=== PATIENT | female | born 1980 | race American Indian/Alaskan Native ===

== ENCOUNTER 2017-04-17 03:13 | Inpatient (IN) | payer MEDICAID ==
--- NOTE | 2017-04-17 04:34 | ED PDOC ---
Arrival/HPI - General Chief Complaint: Psychiatric Evaluation Time Seen by Provider: 04/17/17 03:23 Historian: Patient - History of Present Illness Narrative History of Present Illness (Text): 04/17/17 03:54 Paris Christensen is a 36 year old female who presents to the Emergency department complaining of auditory hallucinations. Patient states she has been hearing voices for the past few days with associated depression and suicidal ideation. Patient states she wishes she could be hit by a bus. Patient denies any fever, chills, chest pain, shortness of breath, nausea, vomiting, diarrhea, urinary symptoms, back pain, neck pain, headache, dizziness, or any other complaints. Time/Duration: Other (few days) Symptom Onset: Gradual Symptom Course: Unchanged Activities at Onset: Rest, Light Context: Home Past Medical History - Provider Review Nursing Documentation Reviewed: Yes - Infectious Disease Hx of Infectious Diseases: None - Cardiac Hx Hypertension: Yes - Pulmonary Hx Respiratory Disorders: Yes Other/Comment: Smoker - Psychiatric Hx Hallucinations: Yes Hx Substance Use: Yes - Surgical History Hx Orthopedic Surgery: Yes (finger) Other/Comment: achilles tendon sx - Anesthesia Hx Anesthesia: Yes Hx Anesthesia Reactions: No Hx Malignant Hyperthermia: No Family/Social History - Physician Review Nursing Documentation Reviewed: Yes Family/Social History: No Known Family HX Smoking Status: Former Smoker Hx Alcohol Use: Yes Frequency of alcohol use: Few days per week Hx Substance Use: Yes Substance used: PCP - 2 days ago Allergies/Home Meds Allergies/Adverse Reactions: Allergies No Known Allergies Allergy (Verified 04/17/17 03:26) Home Medications: Home Meds Medication Instructions Recorded Confirmed Unobtainable 04/17/17 04/17/17 Review of Systems - Physician Review All systems were reviewed & negative as marked: Yes - Review of Systems Constitutional: Normal. absent: Fevers Eyes: Normal ENT: Normal Respiratory: Normal. absent: SOB, Cough Cardiovascular: Normal. absent: Chest Pain Gastrointestinal: Normal. absent: Diarrhea, Nausea, Vomiting Genitourinary Female: Normal. absent: Dysuria, Frequency, Hematuria, Urine Output Changes Musculoskeletal: Normal. absent: Back Pain, Neck Pain Skin: Normal. absent: Rash Neurological: Normal. absent: Headache, Dizziness Endocrine: Normal Hemo/Lymphatic: Normal Psychiatric: Depression, Suicidal Ideation, Other (+hallucinations) Physical Exam Vital Signs Reviewed: Yes Vital Signs Temp Pulse Resp BP Pulse Ox 04/17/17 05:00 104 H 19 112/65 100 04/17/17 03:31 98.7 F 119 H 18 134/86 98 Temperature: Afebrile Blood Pressure: Normal Pulse: Regular Respiratory Rate: Normal Appearance: Positive for: Well-Appearing, Non-Toxic, Comfortable Pain Distress: None Mental Status: Positive for: Alert and Oriented X 3 - Systems Exam Head: Present: Atraumatic, Normocephalic Pupils: Present: PERRL Extroacular Muscles: Present: EOMI Conjunctiva: Present: Normal Ears: Present: NORMAL TM Mouth: Present: Moist Mucous Membranes Pharnyx: Present: Normal Neck: Present: Normal Range of Motion Respiratory/Chest: Present: Clear to Auscultation, Good Air Exchange. No: Respiratory Distress, Accessory Muscle Use Cardiovascular: Present: Regular Rate and Rhythm, Normal S1, S2. No: Murmurs Abdomen: Present: Normal Bowel Sounds. No: Tenderness, Distention, Peritoneal Signs Back: Present: Normal Inspection Upper Extremity: Present: Normal Inspection, Normal ROM. No: Cyanosis, Edema Lower Extremity: Present: Normal Inspection, Normal ROM. No: Edema Neurological: Present: GCS=15, CN II-XII Intact, Speech Normal, Motor Func Grossly Intact, Normal Sensory Function Skin: Present: Warm, Dry, Normal Color. No: Rashes Psychiatric: Present: Alert, Oriented x 3, Delusional, Hallucinations Medical Decision Making ED Course and Treatment: 04/17/17 03:54 Impression: 36 year old female complaining of auditory hallucination, depression, and suicidal ideation. Plan: -- EKG -- Chest X-ray -- Labs, alcohol level -- Urinalysis, urine drug screen -- Reassess and disposition Prior Visits: Notes and results from previous visits were reviewed. Progress Notes: Reviewed EKG, NSR at [address]-segment elevations or depressions, no T-wave inversions, normal intervals. 04/17/17 05:42 Reviewed radiology, Chest X-ray shows no active disease. 04/17/17 07:[address] Barney, pending PES evaluation, re-assessment, and final disposition. - Lab Interpretations Lab Results: 04/17/17 04:45 04/17/17 04:45 Lab Results 04/17/17 04:45: Alcohol, Quantitative < 10 04/17/17 04:45: Salicylates < 1 L, Acetaminophen < 10.0 L 04/17/17 04:45: Urine Opiates Screen Negative, Urine Methadone Screen Negative, Ur Barbiturates Screen Negative, Ur Phencyclidine Scrn Positive H, Ur Amphetamines Screen Negative, U Benzodiazepines Scrn Negative, U Oth Cocaine Metabols Negative, U Cannabinoids Screen Negative 04/17/17 04:45: Sodium 141, Potassium 3.5 L, Chloride 102, Carbon Dioxide 28, Anion Gap 15, BUN 10, Creatinine 0.6, Est GFR ( Amer) > 60, Est GFR (Non- Af Amer) > 60, Random Glucose 93, Calcium 8.9, Total Bilirubin 0.6, AST 48 H, ALT 47, Alkaline Phosphatase 78, Total Protein 7.8, Albumin 4.1, Globulin 3.7, Albumin/Globulin Ratio 1.1 04/17/17 04:45: Urine Color Yellow, Urine Appearance Clear, Urine pH 6.0, Ur Specific [place] 1.025, Urine Protein Trace H, Urine Glucose (UA) Negative, Urine Ketones Negative, Urine Blood Negative, Urine Nitrate Negative, Urine Bilirubin Negative, Urine Urobilinogen 1.0 H, Ur Leukocyte Esterase Negative, Urine RBC 0 - 2, Urine WBC 0 - 2, Urine Bacteria Few, Urine HCG, Qual Negative 04/17/17 04:45: WBC 2.8 L*, RBC 4.12, Hgb 12.0, Hct 35.4 L, MCV 85.9, MCH 29.1, MCHC 33.9, RDW 12.8, Plt Count 168, MPV 10.3, Gran % 64.3, Lymph % (Auto) 24.4, [place] % (Auto) 9.5 H, Eos % (Auto) 1.4 L, Baso % (Auto) 0.4, Gran # 1.82, Lymph # 0.7 L, [place] # 0.3, Eos # 0.0, Baso # 0.01 I have reviewed the lab results: Yes - RAD Interpretation Radiology Orders: 04/17/17 03:54 CHEST PORTABLE [RAD] Stat Patient Safety Coordinator: ED Physician - EKG Interpretation Interpreted by ED Physician: Yes Type: 12 lead EKG - Scribe Statement The provider has reviewed the documentation as recorded by the Jeanetteliyah Lo All medical record entries made by the Thomas were at my direction and personally dictated by me. I have reviewed the chart and agree that the record accurately reflects my personal performance of the history, physical exam, medical decision making, and the department course for this patient. I have also personally directed, reviewed, and agree with the discharge instructions and disposition. Disposition/Present on Arrival - Present on Arrival Any Indicators Present on Arrival: No History of DVT/PE: No History of Uncontrolled Diabetes: No Urinary Catheter: No History of Decub. Ulcer: No History Surgical Site Infection Following: None - Disposition Have Diagnosis and Disposition been Completed?: No Diagnosis: Substance abuse, Hallucinations Disposition Time: 07:00 Condition: STABLE
[2017-04-17 04:39] VITALS: BMI 36.8
[2017-04-17 05:20] LABS: ADD MANUAL DIFF? NO
[2017-04-17 05:26] LABS: BASO # 0.01 K/mm3 (0.0-2.0); BASO % 0.4 % (0.0-3.0); EOS % 1.4 % (1.5-5.0); GRAN # 1.82 (1.4-6.5); GRAN % 64.3 % (50.0-68.0); HEMATOCRIT 35.4 % (36.0-48.0); LYMPH # 0.7 (1.2-3.4); LYMPH % 24.4 % (22.0-35.0); MEAN CELL VOLUME 85.9 fL (80.0-105.0); MEAN CORPUSCULAR HEMOGLOBIN 29.1 pg (25.0-35.0); MEAN CORPUSCULAR HGB CONC 33.9 g/dl (31.0-37.0); MEAN PLATELET VOLUME 10.3 fl (7.0-11.0); MONO # 0.3 (0.1-0.6); MONO % 9.5 % (1.0-6.0); PLATELET COUNT 168 10^3/uL (120.0-450.0); RED CELL DISTRIBUTION WIDTH 12.8 % (11.5-14.5)
[2017-04-17 05:33] LABS: WHITE BLOOD COUNT 2.8 10^3/ul (4.5-11.0)
[2017-04-17 05:35] LABS: ALB/GLOB RATIO 1.1 (1.1-1.8); ALKALINE PHOSPHATASE 78 U/L (38-133); ALT/SGPT 47 U/L (7-56); AST/SGOT 48 U/L (15-39); BILIRUBIN,TOTAL 0.6 mg/dL (0.2-1.3); BLOOD UREA NITROGEN 10 mg/dL (7-21); CALCIUM 8.9 mg/dL (8.4-10.5); CARBON DIOXIDE 28 mmol/L (21-33); CHLORIDE 102 mmol/L (95-110); GFR AFRICAN-AMERICAN > 60; GLUCOSE,RANDOM 93 mg/dL (70-110); POTASSIUM 3.5 mmol/L (3.6-5.0); SODIUM 141 mmol/L (132-148); TOTAL PROTEIN 7.8 g/dL (5.8-8.3)
[2017-04-17 05:41] LABS: URINE BILIRUBIN NEGATIVE (NEGATIVE); URINE BLOOD NEGATIVE (NEGATIVE); URINE GLUCOSE (UA) NEGATIVE (NEGATIVE); URINE KETONE NEGATIVE (NEGATIVE); URINE LEUKOCYTE ESTERASE NEGATIVE Leu/uL (NEGATIVE); URINE PROTEIN TRACE mg/dL (<30 mg/dL)
[2017-04-17 05:45] LABS: URINE APPEARANCE CLEAR (CLEAR); URINE COLOR YELLOW (YELLOW)
[2017-04-17 05:49] LABS: URINE RBC 0 - 2 /hpf (0-2); URINE WBC 0 - 2 /hpf (0-6)
[2017-04-17 05:50] LABS: URINE BACTERIA FEW (NEG)
--- NOTE | 2017-04-17 07:00 | RAD ---
HISTORY: medical clearance COMPARISON: No prior. FINDINGS: LUNGS: No active pulmonary disease. PLEURA: No significant pleural effusion identified, no pneumothorax apparent. CARDIOVASCULAR: Normal. OSSEOUS STRUCTURES: No significant abnormalities. VISUALIZED UPPER ABDOMEN: Normal. OTHER FINDINGS: None. IMPRESSION: No active disease.
--- NOTE | 2017-04-17 07:07 | ED PDOC ---
Physical Exam Vital Signs Reviewed: Yes Vital Signs Temp Pulse Resp BP Pulse Ox 04/17/17 09:00 92 H 17 137/79 100 04/17/17 07:00 94 H 16 113/70 100 04/17/17 05:00 104 H 19 112/65 100 04/17/17 03:31 98.7 F 119 H 18 134/86 98 Temperature: Afebrile Blood Pressure: Normal Pulse: Tachycardic Respiratory Rate: Normal Appearance: Positive for: Well-Appearing, Non-Toxic, Comfortable Pain Distress: None Mental Status: Positive for: Alert and Oriented X 3 Medical Decision Making ED Course and Treatment: 04/17/17 07:05 Patient signed out to me by . Pending PES evaluation, reassessment and disposition. Patient is a 36 year old female who presents to the emergency department complaining of auditory hallucinations associated with depressions and suicidal ideation for past few days. 04/17/17 09:58 Evaluated by PES, accepted for admission for psychosis. - Lab Interpretations Lab Results: 04/17/17 04:45 04/17/17 04:45 Lab Results 04/17/17 04:45: Alcohol, Quantitative < 10 04/17/17 04:45: Salicylates < 1 L, Acetaminophen < 10.0 L 04/17/17 04:45: Urine Opiates Screen Negative, Urine Methadone Screen Negative, Ur Barbiturates Screen Negative, Ur Phencyclidine Scrn Positive H, Ur Amphetamines Screen Negative, U Benzodiazepines Scrn Negative, U Oth Cocaine Metabols Negative, U Cannabinoids Screen Negative 04/17/17 04:45: Sodium 141, Potassium 3.5 L, Chloride 102, Carbon Dioxide 28, Anion Gap 15, BUN 10, Creatinine 0.6, Est GFR ( Amer) > 60, Est GFR (Non- Af Amer) > 60, Random Glucose 93, Calcium 8.9, Total Bilirubin 0.6, AST 48 H, ALT 47, Alkaline Phosphatase 78, Total Protein 7.8, Albumin 4.1, Globulin 3.7, Albumin/Globulin Ratio 1.1 04/17/17 04:45: Urine Color Yellow, Urine Appearance Clear, Urine pH 6.0, Ur Specific [place] 1.025, Urine Protein Trace H, Urine Glucose (UA) Negative, Urine Ketones Negative, Urine Blood Negative, Urine Nitrate Negative, Urine Bilirubin Negative, Urine Urobilinogen 1.0 H, Ur Leukocyte Esterase Negative, Urine RBC 0 - 2, Urine WBC 0 - 2, Urine Bacteria Few, Urine HCG, Qual Negative 04/17/17 04:45: WBC 2.8 L*, RBC 4.12, Hgb 12.0, Hct 35.4 L, MCV 85.9, MCH 29.1, MCHC 33.9, RDW 12.8, Plt Count 168, MPV 10.3, Gran % 64.3, Lymph % (Auto) 24.4, [place] % (Auto) 9.5 H, Eos % (Auto) 1.4 L, Baso % (Auto) 0.4, Gran # 1.82, Lymph # 0.7 L, [place] # 0.3, Eos # 0.0, Baso # 0.01 - RAD Interpretation Radiology Orders: 04/17/17 03:54 CHEST PORTABLE [RAD] Stat - Scribe Statement The provider has reviewed the documentation as recorded by the Thomas Earl Provider Attestation: All medical record entries made by the Thomas were at my direction and personally dictated by me. I have reviewed the chart and agree that the record accurately reflects my personal performance of the history, physical exam, medical decision making, and the department course for this patient. I have also personally directed, reviewed, and agree with the discharge instructions and disposition. Disposition/Present on Arrival - Present on Arrival Any Indicators Present on Arrival: No History of DVT/PE: No History of Uncontrolled Diabetes: No Urinary Catheter: No History of Decub. Ulcer: No History Surgical Site Infection Following: None - Disposition Have Diagnosis and Disposition been Completed?: Yes Diagnosis: Hallucinations, Psychosis Disposition Time: 09:59 Patient Plan: Admission Patient Problems: Current Active Problems Problem Status Onset Hallucinations Acute Substance abuse Acute Condition: STABLE
[2017-04-17 11:12] VITALS: O2SAT 98
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
--- NOTE | 2017-04-17 16:25 | CARD ---
APPROVED REPORT EKG Measurement Heart [id number] <Conclusion> Normal sinus rhythm Normal ECG
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
--- NOTE | 2017-04-19 11:52 | CON ---
DATE: 04/19/2017 SUBJECTIVE: I was consulted by psychiatry. I saw her in her room. She is a very sweet 36-year-old female. She presented to the Emergency Room with complaining of auditory hallucinations for about a few days now with depression and some suicidal thoughts. She wished she could be hit by a bus. No o ther symptoms. No chest pain or shortness of breath, no abdominal pain, no nausea, vomiting or diarr hea. She is very pleasant and she is very nice. PAST MEDICAL HISTORY: She tells me she has a history of hypertension. She is a smoker. She has jamir lucinations. She has substance abuse history, orthopedic surgery on her finger and Achilles tendons. FAMILY HISTORY: Hypertension in the family. SOCIAL HISTORY: Former smoker. Alcohol. Substance abuse. She did PCP 2 days ago. That could be t he reason why it stimulated the voices. ALLERGIES: No known drug allergies. MEDICATIONS: She does not remember the medications she takes or has been taking them at all anyway f or the blood pressure. REVIEW OF SYSTEMS: She does have auditory hallucinations telling her to hurt herself. It is better now this morning. No vision changes, no hearing changes, no sore throat, no congestion, no neck pain , no chest pain or palpitations. No shortness of breath or coughing, no back pain. No extremity kamar n. She ambulates well. No swelling at this time. Comfortable. She is depressed, a little suicidal ; better than when she came in. It could be the drugs getting out of her system and no hallucination s this morning. PHYSICAL EXAMINATION: VITAL SIGNS: 98.7 temp, 119 pulse, came down to 104, an 18 respiratory rate, blood pressure 134/86 c josefina down to 112/65 and 100% O2 sat. GENERAL: She is pleasant right now, smiling, well appearing, nontoxic, comfortable, no acute distres s, alert and oriented x 3, asking me when she can go home. HEENT: Extraocular muscles are intact. Pupils equal, reactive to light and accommodation. Throat i s moist. NECK: Supple. HEART: Regular rate. Normal S1, S2. LUNGS: Clear to auscultation bilaterally. ABDOMEN: Soft, nontender, positive bowel sounds. EXTREMITIES: No edema. NEUROLOGIC: Cranial nerves II-XII grossly intact. GCS is 15. Normal motor functions bilaterally. She can smile. She sticks out her tongue midline. She can close her eyes tight. She is alert and o riented x 3 at this time, no delusional hallucinations. She feels back to her old self and would lik e to go home. I told her that is up to the psychiatrist. We will need to monitor her blood pressure and see where she is at. EKG was normal sinus rhythm at 92 beats per minute. Chest x-ray was clear. She had a few other things. LABORATORY DATA: She had a low white count of 2.8; I am going to repeat that tomorrow, hemoglobin 12 , hematocrit 35.4, platelets 168. Chemistry shows a 141 sodium, potassium 3.5, I told her eat a bana na. BUN 10, creatinine 0.6, GFR is greater than 60, sugar is 93, calcium is 8.9, total bili is 0.6, AST is 48, ALT is 47, alk phos is 78, total protein 7.8, albumin is 4.1, globulin 3.7. Urine had tra ce protein, negative for . She was positive for phencyclidine which I believe is part of PC P. She was seen by the psychiatrist. She definitely has substance abuse and CPT with psychosis, a littl e depression, maybe suicidal thoughts rolled in there. She is currently on Ativan, Cogentin, Desyrel, Geodon, and Risperdal at this time. The last blood pr essure was 125/62 which is very good. I am not going to put her on any blood pressure medication rig ht now. We will keep an eye on her. I would like to repeat the labs tomorrow to make sure the white count comes up and the potassium comes up. If they do not, I will do other things. She is here for auditory hallucinations, substance abuse which was PCP, history of hypertension, none now, low potas sium, leukocytosis. We will follow. Joce Li DO cc: [id number] TT: 04/19/2017 11:38:32 Confirmation # [id number] Dictation # [id number]
--- NOTE | 2017-04-19 16:25 | PCM.PYCHPN ---
Psychiatric Progress Note - Psychiatric Progress Note Patient seen today, length of contact: 30 minutes Patient Chief Complaint: "I came here because I was hearing things, and seeing things." Problems Identified/Issues Discussed: Suicide/ homicide prevention, past psychiatric h/o, current psychiatric symptoms , medical problems, risk/benefits and alternatives of medications, medications compliance, coping strategies, substance abuse h/o, relapse prevention, importance of follow up with psychiatrist and therapist, discharge plan. Medical Problems: low WBC is cells Patient obese Electrolytes disbalance Diagnostic Results: 04/17/17 04:45 04/17/17 04:45 Lab Results 04/17/17 04:45: Alcohol, Quantitative < 10 04/17/17 04:45: Salicylates < 1 L, Acetaminophen < 10.0 L 04/17/17 04:45: Urine Opiates Screen Negative, Urine Methadone Screen Negative, Ur Barbiturates Screen Negative, Ur Phencyclidine Scrn Positive H, Ur Amphetamines Screen Negative, U Benzodiazepines Scrn Negative, U Oth Cocaine Metabols Negative, U Cannabinoids Screen Negative 04/17/17 04:45: Sodium 141, Potassium 3.5 L, Chloride 102, Carbon Dioxide 28, Anion Gap 15, BUN 10, Creatinine 0.6, Est GFR ( Amer) > 60, Est GFR (Non- Af Amer) > 60, Random Glucose 93, Calcium 8.9, Total Bilirubin 0.6, AST 48 H, ALT 47, Alkaline Phosphatase 78, Total Protein 7.8, Albumin 4.1, Globulin 3.7, Albumin/Globulin Ratio 1.1 04/17/17 04:45: Urine Color Yellow, Urine Appearance Clear, Urine pH 6.0, Ur Specific [place] 1.025, Urine Protein Trace H, Urine Glucose (UA) Negative, Urine Ketones Negative, Urine Blood Negative, Urine Nitrate Negative, Urine Bilirubin Negative, Urine Urobilinogen 1.0 H, Ur Leukocyte Esterase Negative, Urine RBC 0 - 2, Urine WBC 0 - 2, Urine Bacteria Few, Urine HCG, Qual Negative 04/17/17 04:45: WBC 2.8 L*, RBC 4.12, Hgb 12.0, Hct 35.4 L, MCV 85.9, MCH 29.1, MCHC 33.9, RDW 12.8, Plt Count 168, MPV 10.3, Gran % 64.3, Lymph % (Auto) 24.4, [place] % (Auto) 9.5 H, Eos % (Auto) 1.4 L, Baso % (Auto) 0.4, Gran # 1.82, Lymph # 0.7 L, [place] # 0.3, Eos # 0.0, Baso # 0.01 Vital Signs Temp Pulse Pulse Resp BP Pulse Ox 04/19/17 07:24 98.1 F 90 20 125/62 04/19/17 07:21 98.1 F 90 20 125/62 04/18/17 16:36 104 H 130/87 04/17/17 15:06 98 H 04/17/17 11:00 96 H 17 137/89 98 04/17/17 09:00 92 H 17 137/79 100 04/17/17 07:00 94 H 16 113/70 100 04/17/17 05:00 104 H 19 112/65 100 04/17/17 03:31 98.7 F 119 H 18 134/86 98 DSM 5 Symptoms Update: shortly patient is 36 years old -[place] female with no known previous history of mental illness, patient denied history of being admitted to the psychiatric inpatient unit, denied history of suicidal attempts, patient brought herself to the hospital looking for help for visual as well as auditory hallucinations, paranoid ideations, patient was admitted to the psychiatric inpatient unit the day before yesterday, patient needs further evaluation and stabilization, medications titration. Patient was seen today at the morning time at the treatment team meeting, patient presented with improved personal hygiene, was pleasant, corporative, socially appropriate. At the same time patient presented to have absolutely disorganized thought process, pt had difficulties to stay focused, patient was jumping from one topic to another, which was not related. Patient was saying that she was hearing some voices, initially she thought that these voices belonged to her family, later on she got to know that it was not. Patient reported when she complained about voices to her mother who said "maybe it's the right time to hear them". Patient reported that she was hearing positive statements such as " I need to stay positive, I need to do my chores, I need to go to zoroastrianism, I need to clean my apartment, and do what I need to do". Patient had tendency of following reported voices are telling her to do. At the same time pt said that she saw some gun in her back yard and she called police, pt did not know if anyone else saw a gun, pt went tangent that police is always "hanging next to my door, I told my mom, we need to move out". pt smoked PCP, pt thought her psychotic symptoms could be related to it. pt reported that she works. pt has two kids, now mother takes care of them 11/10 yo. 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 Medication Change: Yes (Risperdal increased) Medical Record Reviewed: Yes Consults ordered or reviewed: medical consult appreciated Mental Status Examination - Cognitive Function Orientation: Person Memory: Impaired Attention: Poor Concentration: Poor Association: Loose Fund of Knowledge: WNL - Mood Mood: Neutral - Affect Affect: Broad (times and appropriate patient was smiling inappropriately) - Speech Speech: Pressured - Formal Thought Process Formal Thought Process: Hallucinations, Delusions, Paranoia, Loosening of associations, Circumstantial - Suicidal Ideation Suicidal Ideation: No - Homicidal Ideation Homicidal Ideation: No Goal/Treatment Plan - Goal/Treatment Plan Need for Continued Stay: Remain at risks for inpatient hospitalization, Discharge may exacerbated symptoms, Severe functional impairment Progress Toward Problem(s) and Goals/Treatment Plan: milieu, structure, supportive therapy and Risperdal was initiated 0.5 mg 3 times a day which was increased to 1 mg twice a day yesterday, today it will be 1 mg at the morning time to milligrams at the nighttime for psychotic symptoms Trazodone as needed for insomnia Collateral information from the family heating worker evaluation Medical consultation appreciated ll follow-up on labs We'll monitor closely. Estimated Date of D/C: 04/23/17 (we will monitor closely) - Smoking Cessation Smoking Cessation Initiated: No Reason for not providing: patient denied smoking
[2017-04-20 08:05] LABS: HEMATOCRIT 36.3 % (36.0-48.0); MEAN CELL VOLUME 86.4 fL (80.0-105.0); MEAN CORPUSCULAR HGB CONC 33.6 g/dl (31.0-37.0); MEAN PLATELET VOLUME 10.8 fl (7.0-11.0); RED CELL DISTRIBUTION WIDTH 12.7 % (11.5-14.5)
[2017-04-20 08:10] LABS: WHITE BLOOD COUNT 2.8 10^3/ul (4.5-11.0)
[2017-04-20 08:20] LABS: ALB/GLOB RATIO 1.2 (1.1-1.8); ALKALINE PHOSPHATASE 69 U/L (38-133); ALT/SGPT 43 U/L (7-56); AST/SGOT 38 U/L (15-39); BILIRUBIN,TOTAL 0.4 mg/dL (0.2-1.3); BLOOD UREA NITROGEN 15 mg/dL (7-21); CALCIUM 9.3 mg/dL (8.4-10.5); CARBON DIOXIDE 27 mmol/L (21-33); CHLORIDE 104 mmol/L (98-107); GFR AFRICAN-AMERICAN > 60; GLUCOSE,RANDOM 96 mg/dL (70-110); POTASSIUM 4.4 mmol/L (3.6-5.0); SODIUM 138 mmol/L (132-148); TOTAL PROTEIN 7.5 g/dL (5.8-8.3)
--- NOTE | 2017-04-20 08:40 | PCM.PYCHPN ---
Psychiatric Progress Note - Psychiatric Progress Note Patient seen today, length of contact: 25 minutes Patient Chief Complaint: "great" Problems Identified/Issues Discussed: I reviewed assessment and recent notes. Patient was interviewed in the dayroom. She is groomed, well-oriented and cooperative with questioning. Indicates that she is feeling better "great" and denies any new concerns. Affect is reactive with good range. Her thought process is coherent and she denies having any hallucinations or paranoia. Delusions were not elicited during this initial interview. Patient is tolerating her medications and denies any new discomfort or pain coparent. Denies any new issues and has been tolerating medications. Slept well last night. I reviewed staff notes which indicate the patient has been visible, bright and pleasant on the unit. 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 Medication Change: No ( ) Medical Record Reviewed: Yes (notes, reports, labs, vitals) Mental Status Examination - Cognitive Function Orientation: Person Memory: Impaired Attention: Poor Concentration: Poor Association: Loose Fund of Knowledge: WNL - Mood Mood: Neutral ("great") - Affect Affect: Broad (times and appropriate patient was smiling inappropriately) - Speech Speech: Appropriate - Formal Thought Process Formal Thought Process: Hallucinations (denies), Delusions (not elicited today) , Paranoia (not elicited), Loosening of associations (improving), Circumstantial - Suicidal Ideation Suicidal Ideation: No - Homicidal Ideation Homicidal Ideation: No Goal/Treatment Plan - Goal/Treatment Plan Need for Continued Stay: Remain at risks for inpatient hospitalization, Discharge may exacerbated symptoms, Severe functional impairment Progress Toward Problem(s) and Goals/Treatment Plan: * c/w current tx and plan * No new weekend labs * Vitals reviewed and noted below: Selected Entries 04/19/17 04/19/17 07:21 07:24 Temperature 98.1 F 98.1 F Pulse Rate 90 90 Respiratory 20 20 Rate Blood Pressure 125/62 125/62 Estimated Date of D/C: 04/23/17 (we will monitor closely)
--- NOTE | 2017-04-20 13:42 | PN ---
DATE: 04/20/2017 I saw her in the psychiatric floor. She is sitting on the bed. She is comfortable, no acute problem s. No chest pain or shortness breath, no abdominal pain. She tells me she is starting to feel anita r. She is on Ativan, Cogentin, Desyrel, Geodon, Risperdal. PHYSICAL EXAMINATION: VITAL SIGNS: 98 temp, 77 pulse, 122/88 blood pressure, 20 respiratory rate. She is eating well. HEENT: Head is atraumatic, normocephalic. Throat is moist. NECK: Supple. HEART: Regular rate. LUNGS: Clear to auscultation. ABDOMEN: Soft, obese, nontender. EXTREMITIES: No edema. LABORATORY DATA: She has a white count that is persistently low at 2.8, 12.2 hemoglobin, 36.3 hemato crit with 177 platelets. Sodium 138, potassium 4.4, BUN 15, creatinine 0.6, GFR is greater than 60, sugar is 96, calcium 9.3, total bili is 0.4, AST is 38, ALT is 43, alk phos 69, total protein 7.5, al bumin is 4.1. She was positive for PCP. She is being seen by psychiatry. I called in hematology/oncology for the low white count. Repeat th e labs tomorrow, see if we get to the bottom of this. Continue aggressive treatment and care. She i s here for leukopenia, psychosis, low potassium, substance abuse with PCP. Joce Li DO cc: [id number] TT: 04/20/2017 13:41:24 Confirmation # [id number] Dictation # [id number] tn
[2017-04-21 06:32] LABS: HEMATOCRIT 36.2 % (36.0-48.0); MEAN CELL VOLUME 86.8 fL (80.0-105.0); MEAN CORPUSCULAR HEMOGLOBIN 29.7 pg (25.0-35.0); MEAN CORPUSCULAR HGB CONC 34.3 g/dl (31.0-37.0); MEAN PLATELET VOLUME 10.9 fl (7.0-11.0); RED CELL DISTRIBUTION WIDTH 12.7 % (11.5-14.5); WHITE BLOOD COUNT 3.2 10^3/ul (4.5-11.0)
[2017-04-21 06:34] LABS: ALB/GLOB RATIO 1.2 (1.1-1.8); ALKALINE PHOSPHATASE 73 U/L (38-133); ALT/SGPT 40 U/L (7-56); AST/SGOT 31 U/L (15-39); BILIRUBIN,TOTAL 0.4 mg/dL (0.2-1.3); BLOOD UREA NITROGEN 12 mg/dL (7-21); CALCIUM 9.1 mg/dL (8.4-10.5); CARBON DIOXIDE 27 mmol/L (21-33); CHLORIDE 102 mmol/L (98-107); GFR AFRICAN-AMERICAN > 60; GLUCOSE,RANDOM 104 mg/dL (70-110); POTASSIUM 3.6 mmol/L (3.6-5.0); SODIUM 138 mmol/L (132-148); TOTAL PROTEIN 7.8 g/dL (5.8-8.3)
--- NOTE | 2017-04-21 09:17 | PCM.PYCHPN ---
Psychiatric Progress Note - Psychiatric Progress Note Patient seen today, length of contact: 25 minutes Patient Chief Complaint: "great" Problems Identified/Issues Discussed: I reviewed recent notes and patient was interviewed in the dayroom. She remains groomed, well-oriented and cooperative with questioning. Indicates that she is feeling better "great" and denies any new concerns. Affect is reactive with good range. Her thought process is coherent and she denies having any hallucinations or paranoia. Delusions were not elicited during this initial interview. Patient is tolerating her medications and denies any new discomfort or pain coparent. Denies any new issues and has been tolerating medications. Slept well again last night. I reviewed staff notes which indicate the patient has been visible, bright and pleasant on the unit. 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 Medication Change: No ( ) Medical Record Reviewed: Yes (notes, reports, labs, vitals) Mental Status Examination - Cognitive Function Orientation: Person Memory: Impaired Attention: Poor Concentration: Poor Association: Loose Fund of Knowledge: WNL - Mood Mood: Neutral ("great") - Affect Affect: Broad (times and appropriate patient was smiling inappropriately) - Speech Speech: Appropriate - Formal Thought Process Formal Thought Process: Hallucinations (denies), Delusions (not elicited today) , Paranoia (not elicited), Loosening of associations (improving), Circumstantial - Suicidal Ideation Suicidal Ideation: No - Homicidal Ideation Homicidal Ideation: No Goal/Treatment Plan - Goal/Treatment Plan Need for Continued Stay: Remain at risks for inpatient hospitalization, Discharge may exacerbated symptoms, Severe functional impairment Progress Toward Problem(s) and Goals/Treatment Plan: * c/w current tx and plan * Appreciate f/u by Dr. Li on 04/20/17~calling in Heme/Onc consult for low WBC, repeating labs * Vitals reviewed and noted below: Selected Entries 04/20/17 04/20/17 07:46 09:04 Temperature 98.0 F 98.0 F Pulse Rate 77 77 Respiratory 16 20 Rate Blood Pressure 122/88 122/88 * New weekend labs noted below: Laboratory Results - last 24 hr 04/21/17 04/21/17 04/21/17 06:00 06:00 06:00 WBC 3.2 L RBC 4.17 Hgb 12.4 Hct 36.2 MCV 86.8 MCH 29.7 MCHC 34.3 RDW 12.7 Plt Count 180 MPV 10.9 Sodium 138 Potassium 3.6 Chloride 102 Carbon Dioxide 27 Anion Gap 13 BUN 12 Creatinine 0.7 Est GFR ( Amer) > 60 Est GFR (Non-Af Amer) > 60 Random Glucose 104 Calcium 9.1 Total Bilirubin 0.4 AST 31 ALT 40 Alkaline Phosphatase 73 Total Protein 7.8 Albumin 4.2 Globulin 3.6 Albumin/Globulin Ratio 1.2 TSH 3rd Generation < 0.02 L Laboratory Results - last 24 hr 04/20/17 04/20/17 07:00 07:00 WBC 2.8 L* RBC 4.20 Hgb 12.2 Hct 36.3 MCV 86.4 MCH 29.0 MCHC 33.6 RDW 12.7 Plt Count 177 MPV 10.8 Sodium 138 Potassium 4.4 Chloride 104 Carbon Dioxide 27 Anion Gap 11 BUN 15 Creatinine 0.6 Est GFR ( Amer) > 60 Est GFR (Non-Af Amer) > 60 Random Glucose 96 Calcium 9.3 Total Bilirubin 0.4 AST 38 ALT 43 Alkaline Phosphatase 69 Total Protein 7.5 Albumin 4.1 Globulin 3.4 Albumin/Globulin Ratio 1.2 Estimated Date of D/C: 04/23/17 (we will monitor closely)
--- NOTE | 2017-04-21 14:39 | RAD ---
PROCEDURE: Right Knee Radiographs. HISTORY: pain COMPARISON: None. FINDINGS: BONES: Normal. No fracture. JOINTS: Tricompartmental osteoarthritis most pronounced in the patellofemoral compartment. No articular erosion. JOINT EFFUSION: None. OTHER FINDINGS: None. IMPRESSION: Tricompartmental osteoarthritis.
--- NOTE | 2017-04-21 16:39 | CON ---
DATE: 04/21/2017 In psychiatry in room 517. This is a 36-year-old female with known history of generalized anxiety and depression with chronic sc hizoaffective disorder, who presented here with progressively worsening auditory hallucinations and s upervening generalized anxiety and depression with recent suicidal ideations and is now being referre d for evaluation of abnormal thyroid function studies. PAST MEDICAL HISTORY: Essentially unremarkable. History of chronic schizoaffective disorder on psyc hotropic medications. No other medical conditions or medications being taken at this time. FAMILY HISTORY: Positive for hypertension and heart disease. SOCIAL HISTORY: The patient has a supportive family. No known substance use. REVIEW OF SYSTEMS: As mentioned above, admits to generalized body weakness with easy fatigability an d tiredness and suboptimal energy level with recent insomnia as noted. Also, admits to suicidal idea tions as mentioned in the psychiatric note. Also, history of recent auditory hallucinations, worseni ng to the time of admission. No chest pains or palpitations or PNDs. Her oral intake is variable, b ut otherwise satisfactory. Admits to occasional dyspepsia and vague upper abdominal pains. Also, ad mits to habitual constipation. PHYSICAL EXAMINATION: GENERAL: This is an overweight female, in no apparent distress. VITAL SIGNS: Blood pressure of 130/80, pulse of 70 beats per minute, regular, temperature 99, respir ations 20. Height is 5 feet 3 inches, weight is 208 pounds. HEENT: Head normocephalic. Eyes anicteric with conjunctivae. Fundoscopy not possible at this time. Ears, nose and throat otherwise normal. NECK: Supple. Thyroid gland is normal size. No carotid bruits. No cervical adenopathy. CARDIOPULMONARY: Some adynamic precordium. S1, S2 is rapid and regular. LUNGS: Clear to auscultation. ABDOMEN: Flat, soft with positive bowel sounds. EXTREMITIES: No peripheral edema. Pulses are +2 bilaterally. LABORATORIES: Her thyroid studies showed a TSH of less than 0.02. Chemistries: BUN of 12, sodium 1 38, potassium 3.6, chloride 102, CO2 27, glucose 104 and creatinine 0.7. ASSESSMENT: This is a 36-year-old female with recent auditory hallucinations and associated suicidal ideations on the background of generalized anxiety and depression, and is now being referred for paola jonatanation of abnormal thyroid studies. She remains clinically euthyroid and has no overt palpable thyr oid nodules or any cervical adenopathy or thyroid bruits at this time. The suppressed TSH could most likely be related to the so-called acute sick euthyroid syndrome, which should resolve and improve a ccordingly as her clinical condition improves. We have to exclude, however, the presence of underlyi ng subclinical hyperthyroidism and further testing will be undertaken. PLAN OF MANAGEMENT: We will obtain a comprehensive thyroid hormonal profile with a total and free T4 and TSH to be done tomorrow morning. We will also do a thyroid peroxidase antibody to confirm and/o r negate the presence of underlying thyroid autoimmunity. There is no indication at this time for an y kind of thyroid pharmacotherapy. Karen Sandoval MD cc: [id number] TT: 04/21/2017 16:38:19 Confirmation # [id number] Dictation # [id number] en
[2017-04-22 07:45] VITALS: BP 130/79; PULSE 90; RESP 20; TEMP 98
[2017-04-22 07:45] LABS: HEMATOCRIT 36.4 % (36.0-48.0); MEAN CELL VOLUME 86.3 fL (80.0-105.0); MEAN CORPUSCULAR HEMOGLOBIN 29.9 pg (25.0-35.0); MEAN CORPUSCULAR HGB CONC 34.6 g/dl (31.0-37.0); MEAN PLATELET VOLUME 10.4 fl (7.0-11.0); RED CELL DISTRIBUTION WIDTH 12.8 % (11.5-14.5); WHITE BLOOD COUNT 3.1 10^3/ul (4.5-11.0)
[2017-04-22 07:58] LABS: ALB/GLOB RATIO 1.1 (1.1-1.8); ALKALINE PHOSPHATASE 73 U/L (38-133); ALT/SGPT 41 U/L (7-56); AST/SGOT 33 U/L (15-39); BILIRUBIN,TOTAL 0.5 mg/dL (0.2-1.3); BLOOD UREA NITROGEN 13 mg/dL (7-21); CARBON DIOXIDE 28 mmol/L (21-33); CHLORIDE 101 mmol/L (95-110); GFR AFRICAN-AMERICAN > 60; GLUCOSE,RANDOM 94 mg/dL (70-110); POTASSIUM 3.6 mmol/L (3.6-5.0); SODIUM 139 mmol/L (132-148)
[2017-04-22 08:35] LABS: FREE T4 1.99 ng/dL (0.78-2.19); T4 15.9 ug/dL (5.5-11.0)
[2017-04-22] MEDS ORDERED: Meloxicam 7.5 MG TAB PO PRN (08:42)
[2017-04-22 08:48] LABS: THYROID STIMULATING HORMONE < 0.02 mIU/mL (0.46-4.68)
--- NOTE | 2017-04-22 09:00 | PN ---
DATE: 04/22/2017 I see her sitting out of bed to chair with her right leg elevated. She tells me the right knee has b een bothering her. She is on Ativan, Cogentin, Desyrel, Geodon, Risperdal, and Tylenol. PHYSICAL EXAMINATION: VITAL SIGNS: Temp 98, 90 pulse, 130/79 blood pressure, 20 respiratory rate. HEENT: Head is atraumatic, normocephalic. GENERAL: She is happy, she is pleasant, no complaints. She is telling me she is going home today an d she is going to go to work tomorrow. HEART: Regular rate. LUNGS: Clear to auscultation. ABDOMEN: Soft, obese. EXTREMITIES: No edema. The right knee is bothering her. She has a 3.1 white count, 12.6 hemoglobin, 36.4 hematocrit with 182 platelets. Sodium 139, potassiu m 3.6, BUN 13, creatinine 0.6, GFR is greater than 60, sugar is 94, calcium is 9, total bili is 0.5, AST is 33, ALT is 41, alk phos 73, total protein is 8. She had a right knee x-ray, which stated tric ompartmental osteoarthritis. She was seen by Dr. Sandoval, the finishing trimmer, because she had a low TSH . She will get some blood tests. We will see how she does. As per endocrinology and she might have to have that done on the outpatient. I will see if I can put her on a Voltaren gel for the knee art hritis. Joce Li DO cc: [id number] TT: 04/22/2017 08:59:40 Confirmation # [id number] Dictation # [id number] en
--- NOTE | 2017-04-22 09:08 | PN ---
DATE: 04/21/2017 I saw the patient on the psychiatric floor. She is feeling better. Mentally, she is improving. She is eating. She is participating. She had a good day. She is telling me she is having very bad right knee pain, does not know why, and she wants an x-ray. We are also waiting for hematology to see her for the low white count, but definitely she is improving with her mentation. PHYSICAL EXAMINATION: VITAL SIGNS: She has a 98 temp, 77 pulse, 122/88 blood pressure, 20 respiratory rate. HEENT: Head is atraumatic, normocephalic. Throat is moist. NECK: Supple. HEART: Regular rate. LUNGS: Clear to auscultation. ABDOMEN: Soft, obese, nontender. EXTREMITIES: No edema, but the right knee does have some clicking. MEDICATIONS: She is currently on Ativan, Cogentin, Desyrel, Geodon, and Risperdal. LABORATORY DATA: She has a white count that came up to 3.2; it was 2.8 and 2.8 ; now it is 3.2. I called in hematology to take a look. Maybe it is from the drugs she took - that is why it was low. Maybe will continue to improve. Hemoglobin 12.4, hematocrit 36.2, platelets 180. She has a 138 sodium, potassium 3.6, BUN 12, creatinine 0.7. GFR is greater than 60. Sugar is 104. Calcium is 9.1. Total bili is 0.4. AST is 31. ALT is 40. Alk phos 73. Total protein is 7.8. Albumin is 4.2. TSH is low - it is less than 0.02. Urine was clean. Negative . She was positive for PCP. She is currently not on anything for. I will call in endocrinology for the low TSH. Repeat that tomorrow. Also CBC. Wait for hematology, get an x-ray of the right knee. She is here for leukopenia, psychosis, low potassium, substance abuse, PCP, right knee pain, and now a low TSH. Maybe she has hyperthyroid. We will see. Joce Li DO cc: [id number] TT: 04/21/2017 10:55:22 Confirmation # [id number] Dictation # [id number] jn OLGA LIDIA
--- NOTE | 2017-04-23 02:20 | PN ---
DATE: 04/22/2017 ROOM: 517. SUBJECTIVE: This is a 36-year-old female admitted with paranoid schizophrenia and increasing depress ion and insomnia and is now also being followed closely for metabolic management. She remains clinic ally and biochemically euthyroid at this time. LABORATORY DATA: Her latest chemistry showed a BUN of 13, sodium 139, potassium 3.6, chloride 101, C O2 28, glucose 94, and creatinine 0.6. Her thyroid studies, however, are consistent now with the so- called early hyperthyroidism with total T4 of 15.9 and a TSH of less than 0.02 and a free T4 of 1.99. However, because of the recent psychotic-like behavioral changes, this could also be a false elevat ion of the total T4, especially in the light of a free T4 level. So, we do not jump on initiating me dical therapy for hyperthyroidism until we have a confirmatory reading of the levels post-discharge. So, we would recommend that she be followed closely by her medical doctor for outpatient. Repeat th yroid studies and, if the T4 remains normal with a suppressed TSH and elevated free T4 levels, then bashir cantor recommend medical therapy with Tapazole accordingly. Karen Sandoval MD cc: [id number] TT: 04/23/2017 02:19:13 Confirmation # [id number] Dictation # [id number] derrick
--- NOTE | 2017-04-24 11:22 | PCM.PYCHDC ---
Mental Status Examination - Mental Status Examination Orientation: Person, Place, Situation, Time Memory: Intact Mood: Neutral Affect: Broad (and mood congruent) Speech: Appropriate Attention: WNL Concentration: WNL Association: WNL Fund of Knowledge: WNL Formal Thought Process: Delusions (residual symptoms, but much improvement) Description of patient's judgement and insight: Pt has improved insight into mental and medical illness, pt was compliant with medications and unit rules and regulations, pt was going to groups, was calm, cooperative, socially appropriate, no behavioral incidents, no agitation, no aggression. Psychotic Thoughts and Behaviors: Pt denied v/a/t hallucinations, denied paranoid ideations, pt does not appear to be psychotic, and thought process is goal directed. Suicidal Ideation: No Current Homicidal Ideation?: No Plan: pt adamantly denied thoughts of harming self or others denied intent or plan. Discharge Summary - Discharge Note Reason for Hospitalization: psychosis, disorganized thoughts, behavior, visual/auditory hallucinations see ED consultation Psychiatric History (includes Medical, Family, Personal Hx): h/o PCP abuse Laboratory Data: Abnormal Lab Results 04/22/17 07:30 Thyroperoxidase Ab 148 H Consultations:: List each consultation separately and include: 1. Reason for request. 2. Findings. 3. Follow-up Consultations: medical consult appreciated see notes for more detailed information Summary of Hospital Course include:: 1. Description of specific treatment plan utilized for patients during their course of treatmen. 2. Summarize the time- course for resolution of acute symptoms and/or regressed behaviors. 3. Describe issues identified and worked on during hospitalization. 4. Describe medication utilized. 5. Describe medical problems identified and treated. 6. Reassessment of suicide risk Summary of Hospital Course: shortly patient is 36 years old -[place]ish female with no known previous history of mental illness, patient denied history of being admitted to the psychiatric inpatient unit, denied history of suicidal attempts, patient brought herself to the hospital looking for help for visual as well as auditory hallucinations, paranoid ideation, patient was admitted to the psychiatric inpatient unit the day before yesterday, patient needs further evaluation and stabilization, medications titration. initially pt presented to be actively hallucinating, was talking to self, thought that ED monitors sending her messages. UDS was positive for PCP. pt was started on risperdal which was increased to 3mg daily for psychosis, cogentin for EPS, trazodone for insomnia, pt tolerated it well, no side effects observed or reported, AIMS 0, no EPS. pt was seen by medical team, consultation appreciated. Over the course of this hospitalization pt was attending groups, pt also had medication management, had therapeutic milieu. Overall pt improved significantly, pt's affect became brighter, pt was less depressed, has realistic future oriented plans, psychotic symptoms with much improvement, pt was socially appropriate, no behavioral issues, pts insight improved as well and soon pt deemed to be ready for discharge. pt gave permission to speak to her mother, 04/22/17. pt's mother reported pt was doing "much better", expressed no concerns, willing to accept pt back home. as per pt's mother pt improved very much. At the time of the discharge pt denied been depressed, denied thoughts of harming self or others, denied psychotic symptoms, and pt does not appeared to be psychotic, denied been anxious, was considered to pose no threat to self or others, will be following up with outpatient psychiatrist and therapist [facility], information about follow up appointment, time and address provided to the pt, it is patient responsibility to follow up with outpatient clinic, PMD as well as specialists (see SW note for more detailed information). In case pt will need to obtain results of studies pending at discharge pt was provided with contact information of Psychiatric Inpatient unit [phone] as well as Medical Record Department [phone]. Counseling about substances cessation provided AA meetings provided pt is PCP user and does not meet criteria for Naltrexone tx. pt was provided with prescriptions for all of medications (please see medication reconciliation form) Pt was educated about safety plan in case of worsening of symptoms or in case of suicidal or homicidal ideation call 911 or go to the nearest ER, also was educated to take meds as prescribed and stay away from drugs, pt verbalized understanding. - Diagnosis (1) Phencyclidine (PCP)-induced psychosis Status: Acute (2) PCP abuse Status: Acute - Final Diagnosis (DSM 5) Condition upon Discharge: STABLE DSM 5: r/o schizophrenia spectrum d/o\\ Disposition: HOME/ ROUTINE Follow-up Treatment Plan: At the time of the discharge pt denied been depressed, denied thoughts of harming self or others, denied psychotic symptoms, and pt does not appeared to be psychotic, denied been anxious, was considered to pose no threat to self or others, will be following up with outpatient psychiatrist and therapist [facility], information about follow up appointment, time and address provided to the pt, it is patient responsibility to follow up with outpatient clinic, PMD as well as specialists (see SW note for more detailed information). In case pt will need to obtain results of studies pending at discharge pt was provided with contact information of Psychiatric Inpatient unit [phone] as well as Medical Record Department [phone]. Counseling about substances cessation provided AA meetings provided pt is PCP user and does not meet criteria for Naltrexone tx. pt was provided with prescriptions for all of medications (please see medication reconciliation form) Pt was educated about safety plan in case of worsening of symptoms or in case of suicidal or homicidal ideation call 911 or go to the nearest ER, also was educated to take meds as prescribed and stay away from drugs, pt verbalized understanding. Prescriptions/Medication Reconciliation: Benztropine [Cogentin] 0.5 mg PO AMHS #30 tab risperiDONE [RisperDAL Tab] 1 mg PO DAILY #14 tab risperiDONE [RisperDAL Tab] 2 mg PO HS #14 tab traZODone [Desyrel] 50 mg PO HS PRN #14 tab PRN Reason: Insomnia - Smoking Cessation Smoking Cessation Medication prescribed: No Reason for not providing: pt does not smoke
== END 2017-04-22 16:22 | disposition home or self-care (01) | DRG 748 ==
LOC: ED 03:13 → ERH 09:57 → MERGE 09:57 → ERH 10:22 → PSYC 11:44
PROVIDERS: ADMIT Psychiatry & Neurology Psychiatry; ATTEND Psychiatry & Neurology Psychiatry
DX: F16.159 Hallucinogen abuse with hallucinogen-induced psychotic disorder, unspecified (principal); E66.9 Obesity, unspecified; D72.819 Decreased white blood cell count, unspecified; M17.11 Unilateral primary osteoarthritis, right knee; E07.81 Sick-euthyroid syndrome; Z68.36 Body mass index [BMI] 36.0-36.9, adult